=== PATIENT | male | born 1955 ===

== ENCOUNTER 2018-12-05 08:15 | Outpatient (CLI) | payer OTHER ==
[~2018-12-05] VITALS: Ht 182.9 cm; Wt 131.5 kg
== END 2018-12-05 08:30 | disposition home or self-care (01) ==
LOC: OFIC 805 08:15
DX: H60.8X1 Other otitis externa, right ear (principal); H62.41 Otitis externa in other diseases classified elsewhere, right ear

== ENCOUNTER 2018-12-05 08:34 | Outpatient (CLI) | payer OTHER | END 2018-12-05 08:50 | disposition home or self-care (01) | LOC: LAB 08:34 | DX: H61.91 Disorder of right external ear, unspecified (principal) ==